=== PATIENT | female | born 1940 | race Caucasian/White ===

== ENCOUNTER 2017-05-28 09:34 | Emergency (ER) | END 2017-05-28 17:56 | disposition home or self-care (01) ==

== ENCOUNTER 2018-09-28 12:49 | Emergency (ER) | payer MEDICAID, OTHER ==
[~2018-09-28] VITALS: Ht 152.4 cm; Wt 68.4 kg
[~2018-09-28 12:49] MED LIST: ALBU8.5H8 INH; CIPR500T4 PO; INSU100C SQ; LANT3I SC; LISI-471 PO; NIFE60TA18 PO; PRED20TA PO; SILV20CR12 TOP
[2018-09-28 12:59] VITALS: BP 158/72; PULSE 90; RESP 20; Ht 152.4 cm; Wt 68.4 kg
[2018-09-28] MEDS ORDERED: SILVER SULFADIAZINE 1% 25 GM CR TOP ONE (13:30)
--- NOTE | 2018-09-28 13:30 | ERD ---
ER Documentation Chief Complaint Chief Complaint burn @ left foot/toe area HPI Is a 78-year-old diabetic female who presents with hot water burn to her left foot that occurred last night when she was cooking. She now has blisters on her first and second toes. It is painful. Is been no bleeding or drainage. She h as had no fevers. She is ambulatory. ROS All systems reviewed and are negative except as per history of present illness. Medications Home Meds Active Scripts Albuterol Sulfate* (Proair HFA*) 8.5 Gm Hfa.aer.ad, 2 PUFF INH Q4, #1 INHALER Prov:RULA GUERREROS Chelle. DO 05/28/17 Prednisone* (Prednisone*) 20 Mg Tab, 40 MG PO DAILY for 4 Days, TAB Prov:RULA GUERREROS A. DO 05/28/17 Ciprofloxacin Hcl* (Ciprofloxacin Hcl*) 500 Mg Tablet, 500 MG PO BID for 7 Days, TAB Prov:RULA GUERREROS Chelle. DO 05/28/17 Reported Medications Nifedipine* (Nifedipine ER*) 60 Mg Tablet.sa, 60 MG PO DAILY, TAB.SA 05/28/17 Lisinopril* (Lisinopril*) 20 Mg Tablet, 20 MG PO DAILY, #30 TAB 05/28/17 Insulin Glargine* (Lantus*) 100 Unit/Ml Soln, 25 UNIT SC QHS, #1 VIAL 05/28/17 Insulin Lispro (Humalog) 100 Unit/1 Ml Cartridge, 3 UNIT SQ WITH MEALS, EA 05/28/17 Allergies Allergies: Coded Allergies: No Known Allergy (Unverified , 05/28/17) PMhx/Soc History of Surgery: Yes (BILAT EYE SX) Anesthesia Reaction: No Hx Neurological Disorder: No Hx Respiratory Disorders: No Hx Cardiac Disorders: Yes (HTN, HYPERLIPIDEMIA) Hx Psychiatric Problems: No Hx Miscellaneous Medical Probl: Yes (DM) Hx Alcohol Use: No Hx Substance Use: No Hx Tobacco Use: No FmHx Family History: diabetes Physical Exam Vitals Vital Signs Date Temp Pulse Resp B/P (MAP) Pulse Ox O2 O2 Flow FiO2 Time Delivery Rate 09/28/18 98.2 90 20 158/72 96 12:59 (100) Physical Exam Const: No acute distress Head: Atraumatic Eyes: Normal Conjunctiva ENT: Normal External Ears, Nose and Mouth. Neck: Full range of motion. No meningismus. Resp: Clear to auscultation bilaterally Cardio: Regular rate and rhythm, no murmurs Lower Extremity -left Skin: Blisters on first and second toes, no open wounds, no bleeding or drainage Compartments: Soft Motor: Full active range of motion hip/knee/ankle/foot Sensation: Intact to light touch Bones: Nontender pelvis/knee/proximal tibia/ malleoli/foot Joints: No effusion or laxity Pulses/Perfusion: 2+ DP, Capillary refill < 2 seconds Results 24 hrs Current Medications Medications Dose Sig/Ngoc Start Time Status Last (Trade) Ordered Route PRN Stop Time Admin Dose Reason Admin Silver 1 applic ONCE ONCE 09/28/18 Sulfadiazine TOP 13:30 (Thermazene 09/28/18 13:31 1% 25 Gm) Procedures/MDM Patient has burn to second and first toe from hot water yesterday. She is diabetic. I reviewed the case with Dr. Medina who stated patient is suitable for outpatient management. Wound care was initiated here. Burn cream applied and outpatient referral to [facility] burn clinic given. Patient counseled regarding my diagnostic impression and care plan. Prior to discharge all questions answered. Pt agrees with treatment plan and understands strict return precautions. Pt is instructed to follow up with primary care provider within 24- 48 hours. Precautionary instructions provided including instructions to return to the ER if not improving or for any worsening or changing symptoms or concerns. Departure Diagnosis: Primary Impression: Second degree burn Condition: Stable ABDIRAHMAN FARR PA-C Sep 28, 2018 13:30
== END 2018-09-28 13:49 | disposition home or self-care (01) ==
LOC: FTE 12:49
DX: T25.232A Burn of second degree of left toe(s) (nail), initial encounter (principal); I10 Essential (primary) hypertension; E11.9 Type 2 diabetes mellitus without complications; X11.8XXA Contact with other hot tap-water, initial encounter; Y92.9 Unspecified place or not applicable; Z79.4 Long term (current) use of insulin